=== PATIENT | female | born 1940 | race Caucasian/White ===

== ENCOUNTER 2020-07-31 02:26 | Inpatient (IN) | payer MEDICARE, OTHER ==
[~2020-07-31] VITALS: Ht 157.5 cm; Wt 76.2 kg
[2020-07-31] MEDS ORDERED: LOPRESSOR 25 MG25 MG PO (03:52)
[2020-07-31] MEDS ORDERED: RAMIPRIL10 MG PO (03:53)
[2020-07-31] MEDS ORDERED: NORVASC5 MG PO (03:53)
[2020-07-31] MEDS ORDERED: LOW DOSE ASPIRI81 MG PO (03:54)
[2020-07-31] MEDS ORDERED: IMDUR ER TAB 3030 MG PO (03:55)
[2020-07-31] MEDS ORDERED: LIPITOR40 MG PO (03:55)
[2020-07-31] MEDS ORDERED: VENTOLIN HFA 66.7 GM INH (03:56)
[2020-07-31] MEDS ORDERED: LASIX20 MG PO (03:56)
[2020-07-31 10:35] LABS: HEMOGLOBIN 10.5 gm/dl (12.3-15.3); RED BLOOD COUNT 3.61 M/UL (4.00-5.10); WHITE BLOOD COUNT 8.1 K/UL (4.5-11.0)
[2020-07-31 10:55] LABS: BUN/CREATININE RATIO 18 (0-10)
--- NOTE | 2020-07-31 16:26 | NUR ---
PATIENT'S FAMILY AND PATIENT ARE NONCOMPLIANT WITH FALL PRECUATIONS AND INSTRUCTIONS. THIS NURSE INSTRUCTED FAMILY TO NOT ATTEMPT TRANSFER. STAFF NEEDS TO BE PRESENT AND TO ASSIST WITH ALL TRANSFERS TO [facility] OR CHAIR. FAMILY HAS ATTEMPTED MULTIPLE TIMES TO TRANSFER PATIENT, BED ALARM IS ENGAGED.
[2020-08-01 04:46] LABS: HEMOGLOBIN 10.5 gm/dl (12.3-15.3); RED BLOOD COUNT 3.7 M/UL (4.00-5.10); WHITE BLOOD COUNT 8.1 K/UL (4.5-11.0)
[2020-08-01 05:08] LABS: BUN/CREATININE RATIO 18 (0-10)
[2020-08-03 05:02] LABS: HEMOGLOBIN 9.1 gm/dl (12.3-15.3); WHITE BLOOD COUNT 8.5 K/UL (4.5-11.0)
[2020-08-03 05:08] LABS: RED BLOOD COUNT 3.18 M/UL (4.00-5.10)
[2020-08-03 05:29] LABS: BUN/CREATININE RATIO 28 (0-10)
[2020-08-04] MEDS ORDERED: HYDROCODON-ACE1 EAC2 PO (14:00)
== END 2020-08-04 13:53 | disposition home health service (06) | DRG 493 ==
LOC: M/S 03:28
PROVIDERS: Nurse Practitioner Family; Orthopaedic Surgery; ADMIT Internal Medicine
PROC: 0QSH04Z Reposition Left Tibia with Internal Fixation Device, Open Approach (ICD-10-PCS; 2020-08-02)
PROC: 0QSH04Z Reposition Left Tibia with Internal Fixation Device, Open Approach (ICD-10-PCS; 2020-08-02)
PROC: 0QSK04Z Reposition Left Fibula with Internal Fixation Device, Open Approach (ICD-10-PCS; principal; 2020-08-02 08:30)
DX: S82.852A Displaced trimalleolar fracture of left lower leg, initial encounter for closed fracture (principal); I13.0 Hypertensive heart and chronic kidney disease with heart failure and stage 1 through stage 4 chronic kidney disease, or unspecified chronic kidney disease; W01.0XXA Fall on same level from slipping, tripping and stumbling without subsequent striking against object, initial encounter; Z79.82 Long term (current) use of aspirin; Z20.822 Contact with and (suspected) exposure to COVID-19; E78.5 Hyperlipidemia, unspecified; I25.10 Atherosclerotic heart disease of native coronary artery without angina pectoris; N18.9 Chronic kidney disease, unspecified; K21.9 Gastro-esophageal reflux disease without esophagitis; K44.9 Diaphragmatic hernia without obstruction or gangrene; R91.1 Solitary pulmonary nodule; Y92.096 Garden or yard of other non-institutional residence as the place of occurrence of the external cause; Z90.710 Acquired absence of both cervix and uterus; Z88.2 Allergy status to sulfonamides; Z90.49 Acquired absence of other specified parts of digestive tract; R41.0 Disorientation, unspecified; M81.0 Age-related osteoporosis without current pathological fracture; I50.9 Heart failure, unspecified
CPT/HCPCS: 36415; 73610; 76000; 80048; 85025; 85027; 94760; 97116-GP-CQ; 97162; 97166; 97530-GP-CQ; 97535; C1713; J0171; J0690; J1100; J1650; J2001; J2270; J2405; J2704; J2795; J3010; J7030; J7120